=== PATIENT | female | born 1955 | race Caucasian/White ===

== ENCOUNTER 2022-04-02 05:36 | Outpatient (CLI) | payer BC ==
[~2022-04-02] VITALS: Ht 167.7 cm; Wt 72.0 kg
[2022-04-03] MEDS ORDERED: LATA7.5D OP (10:26)
== END 2022-04-03 10:34 ==
LOC: PREOP 05:36
PROVIDERS: ATTEND Podiatrist Foot & Ankle Surgery
DX: Z01.818 Encounter for other preprocedural examination (principal)

== ENCOUNTER 2022-04-09 08:51 | Day surgery (SDC) | payer BC ==
[2022-04-09] VITALS (9 sets, daily range): BP systolic 103–143; BP diastolic 63–86
[~2022-04-09] VITALS: Ht 167 cm; Wt 72.0 kg
[~2022-04-09 08:51] MED LIST: LATA7.5D OP
[2022-04-09] MEDS ORDERED: ceFAZolin INJECTION 1,000 MG VIAL IV ONE (09:15)
[2022-04-09] MEDS: LACTATED RINGERS 1,000 ML IV PRN ×2 (10:09→11:30)
[2022-04-09] MEDS ORDERED: ONDANSETRON 4 MG/2 ML (SDV) Z0FRAN ONE (10:36)
[2022-04-09] MEDS ORDERED: proPOfol 200 MG/20 ML (DIPRIVAN) VIAL IV ONE (10:36)
[2022-04-09] MEDS ORDERED: LIDOCAINE PF 2% 5 ML (XYLOCAINE) VIAL ONE (10:36)
[2022-04-09] MEDS ORDERED: fentaNYL INJ 100 MCG/2 ML AMP ONE (10:36)
[2022-04-09] MEDS ORDERED: LIDOCAINE 1% INJ 10 ML VIAL ONE (10:40)
[2022-04-09] MEDS ORDERED: BUPIVACAINE 0.5% 30 ML (SENSORCAINE) VIAL ONE (10:40)
--- NOTE | 2022-04-09 11:02 | Progress Note-Pre Operative ---
Pre-Operative Progress Note Date of Available H&P: Apr 09, 2022 Date H&P Reviewed: Apr 09, 2022 Time H&P Reviewed: 11:01 Pre-Operative Diagnosis: Hallux Valgus, hypertrophic 2nd metatarsal, right LILIYA HURT DPCarlos Eduardo Apr 09, 2022 11:02
[2022-04-09] MEDS ORDERED: BUPIVACAINE 0.5% 30 ML (SENSORCAINE) VIAL IJ ONE (11:58)
[2022-04-09] MEDS ORDERED: LIDOCAINE 1% INJ 10 ML VIAL IJ ONE (11:59)
[2022-04-09] MEDS ORDERED: KETOROLAC 30 MG/ML VIAL ONE (12:37)
[2022-04-09] MEDS ORDERED: SEVOFLURANE (ULTANE) 15 ML INHAL SOLN ONE (12:44)
--- NOTE | 2022-04-09 12:49 | Progress Note-Post Operative ---
Post-Operative Progess Note Surgeon (s)/Racetrack Steward (s) Surgeon LILIYA HURT DPM Racetrack Steward: none Pre-Operative Diagnosis Hallux Valgus, hypertrophic 2nd metatarsal, right Post-Operative Diagnosis Same, plus DJD of right 1st MTPJ Procedure & Operative Findings Date of Procedure 04/09/22 Procedure Performed/Findings Son-Jeremiah Bunionectomy, right 2nd Metatarsal Osteotomy, right Anesthesia Type General Estimated Blood Loss Estimated blood loss (mL): Minimal Specimens/Packing Specimens Removed None LILIYA HURT DPM Apr 09, 2022 12:49
[2022-04-09] MEDS ORDERED: ACHD5005 PO (12:52)
[2022-04-09] MEDS ORDERED: CEPH500C PO (12:52)
[2022-04-09] MEDS ORDERED: HYDROcodone/APAP 5 MG/325 MG (LORTAB) TAB PO PRN (13:00)
[2022-04-09] MEDS ORDERED: LACTATED RINGERS 1,000 ML IV SCH (13:00)
--- NOTE | 2022-04-09 13:02 | Anesthesia-General Post-Op ---
General Patient Condition Mental Status/LOC: Same as Preop Cardiovascular: Satisfactory Nausea/Vomiting: Absent Respiratory: Satisfactory Pain: Controlled Complications: Absent Post Op Complications Complications None Follow Up Care/Instructions Patient Instructions None needed. Anesthesia/Patient Condition Patient Condition Patient is doing well, no complaints, stable vital signs, no apparent adverse anesthesia problems. No complications reported per nursing. HARITHA WHITE CRNA Apr 09, 2022 13:02
[2022-04-09] MEDS ORDERED: morphine INJ 10 MG/ML 1ML (SYR OR VIAL) IVP ONE (13:15)
[2022-04-09] MEDS ORDERED: fentaNYL INJ 100 MCG/2 ML AMP IVP ONE (13:15)
[2022-04-09] MEDS ORDERED: ONDANSETRON 4 MG/2 ML (SDV) Z0FRAN IVP PRN (13:15)
--- NOTE | 2022-04-09 14:34 | Physical Therapy Progress Note ---
Therapy Progress Note Patient declined PT intervention due to patient has established FWW, crutches and an I walk and has been practicing. Patient reports she feels comfortable with all assistive devices and declined PT. RN notified. 1 visit PARESH TAYLOR PT Apr 09, 2022 14:34
--- NOTE | 2022-04-09 17:07 | Diagnostic Imaging Report ---
EXAMINATION: Right foot radiograph EXAM DATE: 04/09/2022 1:28 PM COMPARISON: None available. HISTORY: Postoperative evaluation TECHNIQUE: 2 views FINDINGS: There are surgical changes of the 1st and 2nd metatarsal bones and 1st proximal phalanx. Mildly displaced fracture seen within the 1st metatarsal. Likely nondisplaced fractures of the 1st digit proximal phalanx and distal 2nd metatarsal. No suspicious radiopaque foreign body. The joint spaces are normal. There is mild soft tissue swelling within the mid foot. IMPRESSION: 1. Fractures of the distal 1st and 2nd right metatarsals and 1st digit proximal phalanx with associated surgical change. Dictated by: Dictated on workstation # [id number]
--- NOTE | 2022-04-09 18:09 | OPERATIVE REPORT ---
DATE OF SERVICE: 04/09/2022 SURGEON: Liliya Hurt DPM. PREOPERATIVE DIAGNOSES: 1. Hallux abductovalgus metatarsal primus varus, right. 2. Hypertrophic second metatarsal, right. 3. Neuroma, right second intermetatarsal space. POSTOPERATIVE DIAGNOSES: 1. Hallux abductovalgus metatarsal primus varus, right. 2. Hypertrophic second metatarsal, right. 3. Neuroma, right second intermetatarsal space. 4. 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 PROCEDURES PERFORMED: 1. Modified Son-Jeremiah bunionectomy, right. 2. Second metatarsal osteotomy, right with decompression of the second intermetatarsal space. WOUND CLASS: Clean. ANESTHESIA: General. HEMOSTASIS: Pneumatic thigh tourniquet at 250 mmHg. INDICATIONS FOR PROCEDURE: This 66-year-old female presents complaining of a painful right foot. Conservative therapy has met with unsatisfactory results and the patient is agreeable to surgical intervention after risks and complications were discussed at length. No guarantees were extended to the patient and she is willing to proceed. DESCRIPTION OF PROCEDURE: The patient was brought back to the operating table and placed in a secure supine position. A general anesthetic was then induced. Appropriate timeout was performed. The right foot was anesthetized utilizing 10 mL of 1:1 mixture of 1% Xylocaine, 0.5% Marcaine injected in a Haas block as well as an infusion to the second ray. The right foot was then prepped and draped in a normal sterile manner. The right foot was then elevated and allowed to exsanguinate after which the tourniquet was inflated to 250 mmHg. Attention was then directed to the dorsal aspect of the first metatarsophalangeal joint, where a 6 cm longitudinal linear incision was created. The incision was deepened in the same plane with great care to identify and retract all vital neurovascular structures. Only necessary blood vessels were cauterized as encountered. The incision was deepened down to the capsular tissue, where a longitudinal capsulotomy was performed, which was reflected demonstrating a hypertrophic medial eminence of the first metatarsal head. This eminence was reduced with a power sagittal saw. The dorsal eminence to the first metatarsal head was also reduced with a power sagittal saw. The head was further contoured and smoothed with a power rasp. Attention was then directed to the first intermetatarsal space, where blunt dissection was performed down to the lateral capsule of the first metatarsophalangeal joint. A lateral capsulorrhaphy was performed as well as release of the conjoint tendon of the adductor hallucis. The fibular sesamoidal ligament was also released. Attention was then redirected to the medial aspect of the first metatarsal, where a Chevron osteotomy was performed allowing the capital fragment to translocate laterally and was fixated in its corrected position utilizing a 0.062 threaded K-wire from dorsal proximal to plantar distal across the osteotomy with great care not to penetrate the articular cartilage. The K-wire was cut, flushed with the dorsal aspect of the first metatarsal. The head of the first metatarsal was further contoured and smoothed with a power bur and hand rasp. Attention was then directed to the diaphysis of the proximal phalanx of the hallux. Subperiosteal dissection was carried out. Next, a power sagittal saw was used to create an osteotomy to the mid diaphysis of the proximal phalanx with a wedge of bone resected with the base medial and lateral cortices held intact. A boat pilot hole was created to the dorsal medial aspect of the osteotomy after which a 28-gauge monofilament wire was passed through the boat pilot hole securing the osteotomy in a closed position. This did a good job of reducing the lateral deviation of the hallux. The foot was flushed with copious amounts of normal saline throughout the procedure. A closure was then performed in layers. Deep closure was performed with 3-0 Vicryl, superficial with 4-0 Vicryl, and skin closure with 4-0 Prolene in a horizontal mattress type stitch. It should be noted that prior to closure, the first metatarsal head was inspected and found to have a full thickness degeneration of the articular cartilage to several areas, most notably to the dorsal, medial, lateral, central, and plantar aspect of the head along the lateral sagittal groove. These areas were addressed by removing loose cartilage, after which, fenestration was performed with a 1.5 mm wire for fenestration of the areas devoid of any articular cartilage. The purpose of this is to allow for development of fibrocartilage and reshaping and protecting the underlying bone. Attention was then directed to the dorsal aspect of the right second metatarsophalangeal joint, where a 3 cm longitudinal linear incision was created. The incision was deepened down to the extensor tendon overlying the metatarsophalangeal joint. A capsulotomy was performed medial to the extensor digitorum longus tendon. This exposed the hypertrophic second metatarsal of the right foot. The medial collateral ligament was also released. Utilizing a power sagittal saw, a [place] Chevron-type osteotomy was performed allowing the capital fragment to translocate proximally and medially. The purpose of this is to decompress the second intermetatarsal space. This also released pressure to the second metatarsal head reducing some of her metatarsalgia; at least this is the attention of the procedure. Utilizing standard technique, a 2.0 snap-off screw of 12 mm of length was driven from dorsal to plantar across the osteotomy with the capital fragment in its corrected position. Excellent bony apposition and fixation was appreciated. It should be noted that the cut was parallel to what would be the weightbearing surface for the patient and the beginning of the cut was just inferior to the dorsal surface of the articular cartilage of the second metatarsal head. Once the capital fragment was translocated and fixated, the remaining head of the second metatarsal was further contoured and smoothed utilizing a rongeur, hand rasp and bur. Excellent range of motion was appreciated to the right second metatarsophalangeal joint. The wound was flushed with copious amounts of normal saline and closure was performed in layers. Deep closure was performed with 3-0 Vicryl, superficial with 4-0 Vicryl, and skin closure with 4-0 Prolene in a horizontal mattress type stitch. Postoperative injection consisted of 0.5% Marcaine, a total of 12 mL injected in a Haas block and a local infusion to the second ray right foot. Postop injection also included 10 mg of dexamethasone into the right second intermetatarsal space, where approximately 8 mg was injected and then 2 mg into the first intermetatarsal space just lateral to the first metatarsal head and to the capsule. Postoperative dressing consisted of Betadine soaked Adaptic, sterile 4 x 4, and sterile Kerlix all secured with a Coban wrap. The patient tolerated the anesthesia and procedure well and was transported from the operating room to the recovery room with vital signs stable and vascular status intact to all digits of the right foot. The patient was given a prescription for Keflex and Vicodin. She is to follow up in my office in 10 days' period of time and be nonweightbearing during that period to the right forefoot. Job ID: [id number] DocumentID: [id number] Dictated Date: 04/09/2022 13:04:31 [employer] Clerk Date: 04/09/2022 18:07:57 Dictated By: LILIYA HURT DPM
== END 2022-04-09 14:25 | disposition home or self-care (01) ==
LOC: SDC 08:51
PROVIDERS: ATTEND Podiatrist Foot & Ankle Surgery
DX: M20.11 Hallux valgus (acquired), right foot (principal); D36.13 Benign neoplasm of peripheral nerves and autonomic nervous system of lower limb, including hip; M89.371 Hypertrophy of bone, right ankle and foot
CPT/HCPCS: 28296; 73620; 87081; C1713 ×2